=== PATIENT | female | born 1990 | race Caucasian/White ===

== ENCOUNTER → 2016-02-16 | Outpatient (CLI) | payer OTHER ==
[~2016-02-16] MED LIST: CALNTAB; CLON0.1T PO; IBUP-232 PO; SENN1TAB PO; SUBO8MIS SL; Z.0.NO CURRENT MEDS
== END ==
LOC: HPND 10:09
PROVIDERS: ATTEND Obstetrics & Gynecology
DX: O99.322 Drug use complicating pregnancy, second trimester (principal); O99.512 Diseases of the respiratory system complicating pregnancy, second trimester; O09.32 Supervision of pregnancy with insufficient antenatal care, second trimester; Z3A.22 22 weeks gestation of pregnancy
CPT/HCPCS: 76811; 76825; 76827; 93325

== ENCOUNTER 2016-04-23 21:13 | Emergency (ER) | payer MEDICAID ==
[~2016-04-23 21:13] MED LIST changes: -CALNTAB; -CLON0.1T PO; -SENN1TAB PO; -SUBO8MIS SL
--- NOTE | 2016-04-23 21:50 | PD ---
History of Present Illness Date Seen: Apr 23, 2016 History of Present Illness Pt is 38 wks with postcoital bleeding today [the only time she has had bleeding] US in past ruled out previa. Denies pain or SROM, FHR reactive no CTXs exam --spec exam - no blood nl cx no infection , cx /-2/vtx Plan to observe for 1 hr and if no bleeding can D/C home , it was explained to her that sex or vag exams can cause some light bleeding She goes to a different OB group at [facility] and will follow up with them Guillermo Pizarro II, MD Apr 23, 2016 21:50
--- NOTE | 2016-04-23 22:07 | PD ---
HPI Chief Complaint vaginal pink discharge/bleeding Date Seen: Apr 23, 2016 Travel History International Travel<30 Days: No Contact w/Intl Traveler<30Days: No History of Present Illness HPI Ms. Lopes is a 25 yo at 38 5/7 weeks (KIM 05/02/2016) who presents with report of "pink"/"clear" vaginal bleeding which has been persistent since 2-3pm today. Patient describes volume as like a light period. This discharge occurred immediately after intercourse. Patient otherwise denies symptoms. She reports normal movement. She denies any abdominal pain or concern for contractions. Patient does not think she had rupture of membranes. Patient does not report shortness of breath, headaches, fever/chills, nausea/ vomiting, dysuria, or calf pain at this time. Patient reports that she has been taking clonidine 0.1 mg daily at bedtime, Subutex 4 mg daily, and vitamin supplementation during . Patient reports that she smokes approximately 2 cigarettes a day. Per records , patient has history of hepatitis C which has not been treated. Para: 1 : 4 Miscarriage: 2 History Past Medical History Narrative Medical Per Patient None Per records Hepatitis C Tobacco abuse Opiate abuse Anemia (prior Hgb 910) Obstetric History Obstetric History Per patient: Per EMR: 011 Past Surgical History Surgical History: No Previous Surgery Family History Narrative Family History Per records, family history of Down syndrome but otherwise negative Family History: Negative Social History Alcohol Use: No Tobacco Use: Yes (patient reports 2 cigarettes a day) Substance Abuse: Yes (Subutex use; per [facility] records this was not initially prescribed) Allergies-Medications (Allergen,Severity, Reaction): Coded Allergies: No Known Allergies (Verified , 01/09/11) Home Meds Active Scripts Ibuprofen (Motrin)600 Mg [id number] Mg PO TID #45 Prov:Thomas Marrero MD 01/10/11 Reported Medications Miscellaneous (No Current Meds) [facility] [place] 01/09/11 Review of Systems General / Constitutional: No: Fever, Chills Eyes: No: Blurred Vision HENT: No: Headaches Cardiovascular: No: Chest Pain or Discomfort Respiratory: No: Short of Breath Gastrointestinal: No: Nausea, Vomiting Genitourinary: No: Dysuria Skin: No Rash Physical Exam BP 126/86 HR 61 Respirations 18 Temp 98.1F Narrative GENERAL: Well-nourished, well-developed patient. SKIN: Warm and dry. HEAD: Normocephalic and atraumatic. EYES: No scleral icterus. No injection or drainage. ENT: No nasal drainage noted. Mucous membranes pink. Airway patent. NECK: Supple, trachea midline. No JVD. CARDIOVASCULAR: Regular rate and rhythm without murmurs; normal rate RESPIRATORY: Breath sounds equal bilaterally. No accessory muscle use. EXTREMITIES: No cyanosis or edema. NEUROLOGICAL: Awake and alert. Motor and sensory function grossly within normal limits. ABDOMEN/GI: Abdomen soft, non-tender, bowel sounds present, no rebound, no guarding Gravid GENITOURINARY: Vaginal vault: No blood visible on speculum exam Cervix: Dilatation: 3 Effacement: 50% Station: -2 Presentation: V Membranes: Intact Uterine Contractions: None FHT's: Category: 1 Baseline: 130 Reactive: Y Variability: Moderate Decels: None Data Data Vital Signs Reviewed: Yes MDM Medical Record Reviewed: Yes Narrative Course / MDM 25 yo at 38 5/7 weeks (KIM 05/02/2016) Assessment: Strong suspicion for postcoital bleeding from cervical irritation Category 1 rhythm Cervix 3/50%/-2 No evidence of vaginal blood/bleeding on speculum exam No contractions on EFM Plan We'll continue to monitor patient/EFM for 1 hour to confirm reassuring status Interval History: -EFM reassuring x1 hr. Category 1 rhythm. No evidence of contractions. Patient deemed stable for discharge home; patient recommended to follow up with her OB provider within one week for routine care Diagnosis Diagnosis: Primary Impression: PCB (post coital bleeding) Disposition: 01 DISCHARGE HOME Condition: Stable Referrals: HEATHER CASTAÑEDA M.D. 1 week Patient Instructions: General Instructions, at 39 to 40 Weeks (DC) Zack Al MD R2 Apr 23, 2016 22:07
== END 2016-04-23 22:38 | disposition home or self-care (01) ==
LOC: HOBED 21:13
DX: N93.0 Postcoital and contact bleeding (principal); B19.20 Unspecified viral hepatitis C without hepatic coma; F11.10 Opioid abuse, uncomplicated; D64.9 Anemia, unspecified; Z3A.38 38 weeks gestation of pregnancy; Z72.0 Tobacco use
CPT/HCPCS: 99284

== ENCOUNTER 2016-05-01 10:08 | Inpatient (IN) | payer MEDICAID ==
[2016-05-01] VITALS (35 sets, daily range): BP systolic 110–144; BP diastolic 65–97; PULSE 58–121; RESP 18; TEMP 98.3–98.8; O2SAT 100
[~2016-05-01] VITALS: Ht 183 cm; Wt 81.6 kg
[2016-05-01] MEDS ORDERED: LACTATED RINGER'S 1000 ML INJ 1,000 ML IV SCH (10:31)
[2016-05-01] MEDS ORDERED: LACTATED RINGER'S 1000 ML INJ 1,000 ML IV PRN (10:31)
[2016-05-01] MEDS ORDERED: LIDOCAINE HCL 1% 50 ML VIAL I-DERMAL PRN (10:45)
[2016-05-01] MEDS ORDERED: LIDOCAINE HCL 1% 50 ML VIAL INFIL PRN (10:45)
[2016-05-01] MEDS ORDERED: MINERAL OIL 10 ML VIAL TOPICAL PRN (10:45)
[2016-05-01] MEDS ORDERED: SODIUM CHLORID 0.9% 500 ML INJ 500 ML IV PRN (10:45)
[2016-05-01] MEDS ORDERED: OXYTOCIN 30 UNITS-500ML PREMIX 500 ML IV ONE (10:45)
[2016-05-01] MEDS ORDERED: CITRIC ACID-SODIUM CITRATE LIQ 30 ML UDC PO SCH (10:45)
--- NOTE | 2016-05-01 10:48 | PD ---
HPI Chief Complaint Contractions Date Seen: May 01, 2016 Time Seen: 10:35 Travel History International Travel<30 Days: No Contact w/Intl Traveler<30Days: No Known Affected Area: No History of Present Illness HPI 25-year-old 4 para 1 AB 2 at 39-6/7 weeks gestation with contractions. She denies leakage of fluid or bleeding. Para: 1 : 4 Miscarriage: 2 History Past Medical History Narrative Medical On Subutex for history of opiate abuse Obstetric History Obstetric History One prior vaginal delivery 7 lbs. 7 oz. 2 [facility] no records are available for review. The patient reports a negative GBS result Past Surgical History Surgical History: No Previous Surgery Family History Family History: Negative Social History Alcohol Use: No Tobacco Use: No Substance Abuse: Yes (currently on Subutex) Allergies-Medications (Allergen,Severity, Reaction): Coded Allergies: No Known Allergies (Verified , 01/09/11) Home Meds Active Scripts Ibuprofen (Motrin)600 Mg [id number] Mg PO TID #45 Prov:Thomas Marrero MD 01/10/11 Reported Medications Miscellaneous (No Current Meds) [facility] [place] 01/09/11 Physical Exam Narrative GENERAL: Well-nourished, well-developed patient. SKIN: Warm and dry. HEAD: Normocephalic and atraumatic. EYES: No scleral icterus. No injection or drainage. ENT: No nasal drainage noted. Mucous membranes pink. Airway patent. NECK: Supple, trachea midline. No JVD. CARDIOVASCULAR: Regular rate and rhythm without murmurs, gallops, or rubs. RESPIRATORY: Breath sounds equal bilaterally. No accessory muscle use. ABDOMEN/GI: Abdomen soft, non-tender, bowel sounds present, no rebound, no guarding Gravid to [-] weeks size Fundal Height: [-] GENITOURINARY: External Genitalia: intact and normal in appearance BUS glands: [-] Cervix: [-] Dilatation: [-8-9] Effacement: [-] 100 Station: [-+1] Presentation: [-] Membranes: [intact ] Uterine Contractions: [Every 2-3-] FHT's: Category: [-] Baseline: [-] Reactive: [-] Variability: [-] Decels: [-] EXTREMITIES: No cyanosis or edema. BACK: Nontender without obvious deformity. No CVA tenderness. NEUROLOGICAL: Awake and alert. Motor and sensory grossly within normal limits. Five out of 5 muscle strength in all muscle groups. Normal speech. Data Data Orders Ob (2e) Additional Admit Info (05/01/16 10:32) Admit To Inpatient (05/01/16 ) Code Status (05/01/16 10:31) Vital Signs (Adult) .Per protocol (05/01/16 10:31) ^ Heart (05/01/16 10:31) ^ Amnioinfusion (05/01/16 10:31) Urinary Catheter Management .ONCE (05/01/16 10:31) Lactated Ringer's 1000 Ml Inj (Lr 1000 M (05/01/16 10:31) Lactated Ringer's 1000 Ml Inj (Lr 1000 M (05/01/16 10:31) Sodium Chlorid 0.9% 500 Ml Inj (Ns 500 M (05/01/16 10:45) Sodium Chlor 0.9% 1000 Ml Inj (Ns 1000 M (05/01/16 10:51) Lidocaine 1% Inj (50 Ml) (Xylocaine 1% I (05/01/16 10:45) Citric Acid-Sodium Citrate Liq (Bicitra (05/01/16 10:45) Fentanyl Inj (Fentanyl Inj) (05/01/16 10:45) Fentanyl Inj (Fentanyl Inj) (05/01/16 10:45) Complete Blood Count With Diff (05/01/16 10:31) Hold Clot (05/01/16 10:31) Abo/Rh Blood Type (05/01/16 10:31) Resp Oxygen Non Rebreathe Mask (05/01/16 ) ^ Epidural / Intrathecal Infus (05/01/16 10:31) Oxytocin 30 Units-500ml Premix (Pitocin (05/01/16 10:45) Lidocaine 1% Inj (50 Ml) (Xylocaine 1% I (05/01/16 10:45) Light Mineral Oil (Muri-Lube Oil) (05/01/16 10:45) Inpatient Certification (05/01/16 ) Vital Signs (Adult) .ON ADMISSION (05/01/16 10:37) ^ Labor Status (05/01/16 10:37) Drug Screen, Random Urine (05/01/16 10:37) MDM Medical Record Reviewed: Yes Narrative Course / MDM Assessment: Term intrauterine in active labor, current Subutex use Plan: Admit for labor management, expect vaginal delivery Stevo Cross MD May 01, 2016 10:48
[2016-05-01] MEDS ORDERED: SODIUM CHLOR 0.9% 1000 ML INJ 1,000 ML IV PRN (10:51)
--- NOTE | 2016-05-01 10:51 | HHI.HP ---
History & Physical H&P Patient Name: Christina Lopes Unit Number: [id number] Date of : 1990 Patient Status: Admitted Inpatient Attending Doctor: Stevo Cross MD HPI HPI Chief Complaint Contractions Date Seen: May 01, 2016 Time Seen: 10:35 Travel History International Travel<30 Days: No Contact w/Intl Traveler<30Days: No Known Affected Area: No History of Present Illness HPI 25-year-old 4 para 1 AB 2 at 39-6/7 weeks gestation with contractions. She denies leakage of fluid or bleeding. Para: 1 : 4 Miscarriage: 2 History (Limited) History Past Medical History Narrative Medical On Subutex for history of opiate abuse Obstetric History Obstetric History One prior vaginal delivery 7 lbs. 7 oz. 2 prior [facility]riages [facility] but no records are available for review. The patient reports a negative GBS result Past Surgical History Surgical History: No Previous Surgery Family History Family History: Negative Social History Alcohol Use: No Tobacco Use: No Substance Abuse: Yes (currently on Subutex) Allergies-Medications Allergies-Medications (Allergen,Severity, Reaction): Coded Allergies: No Known Allergies (Verified , 01/09/11) Home Meds Active Scripts Ibuprofen (Motrin)600 Mg [id number] Mg PO TID #45 Prov:Thomas Marrero MD 01/10/11 Reported Medications Miscellaneous (No Current Meds) Misc 01/09/11 ROS Review of Systems Physical Exam Physical Exam Narrative GENERAL: Well-nourished, well-developed patient. SKIN: Warm and dry. HEAD: Normocephalic and atraumatic. EYES: No scleral icterus. No injection or drainage. ENT: No nasal drainage noted. Mucous membranes pink. Airway patent. NECK: Supple, trachea midline. No JVD. CARDIOVASCULAR: Regular rate and rhythm without murmurs, gallops, or rubs. RESPIRATORY: Breath sounds equal bilaterally. No accessory muscle use. ABDOMEN/GI: Abdomen soft, non-tender, bowel sounds present, no rebound, no guarding Gravid to [-] weeks size Fundal Height: [-] GENITOURINARY: External Genitalia: intact and normal in appearance BUS glands: [-] Cervix: [-] Dilatation: [-8-9] Effacement: [-] 100 Station: [-+1] Presentation: [-] Membranes: [intact ] Uterine Contractions: [Every 2-3-] FHT's: Category: [-] Baseline: [-] Reactive: [-] Variability: [-] Decels: [-] EXTREMITIES: No cyanosis or edema. BACK: Nontender without obvious deformity. No CVA tenderness. NEUROLOGICAL: Awake and alert. Motor and sensory grossly within normal limits. Five out of 5 muscle strength in all muscle groups. Normal speech. Data Data Data Orders Ob (2e) Additional Admit Info (05/01/16 10:32) Admit To Inpatient (05/01/16 ) Code Status (05/01/16 10:31) Vital Signs (Adult) .Per protocol (05/01/16 10:31) ^ Heart (05/01/16 10:31) ^ Amnioinfusion (05/01/16 10:31) Urinary Catheter Management .ONCE (05/01/16 10:31) Lactated Ringer's 1000 Ml Inj (Lr 1000 M (05/01/16 10:31) Lactated Ringer's 1000 Ml Inj (Lr 1000 M (05/01/16 10:31) Sodium Chlorid 0.9% 500 Ml Inj (Ns 500 M (05/01/16 10:45) Sodium Chlor 0.9% 1000 Ml Inj (Ns 1000 M (05/01/16 10:51) Lidocaine 1% Inj (50 Ml) (Xylocaine 1% I (05/01/16 10:45) Citric Acid-Sodium Citrate Liq (Bicitra (05/01/16 10:45) Fentanyl Inj (Fentanyl Inj) (05/01/16 10:45) Fentanyl Inj (Fentanyl Inj) (05/01/16 10:45) Complete Blood Count With Diff (05/01/16 10:31) Hold Clot (05/01/16 10:31) Abo/Rh Blood Type (05/01/16 10:31) Resp Oxygen Non Rebreathe Mask (05/01/16 ) ^ Epidural / Intrathecal Infus (05/01/16 10:31) Oxytocin 30 Units-500ml Premix (Pitocin (05/01/16 10:45) Lidocaine 1% Inj (50 Ml) (Xylocaine 1% I (05/01/16 10:45) Light Mineral Oil (Muri-Lube Oil) (05/01/16 10:45) Inpatient Certification (05/01/16 ) Vital Signs (Adult) .ON ADMISSION (05/01/16 10:37) ^ Labor Status (05/01/16 10:37) Drug Screen, Random Urine (05/01/16 10:37) MDM MDM Medical Record Reviewed: Yes Narrative Course / MDM Assessment: Term intrauterine in active labor, current Subutex use Plan: Admit for labor management, expect vaginal delivery Stevo Cross MD May 01, 2016 10:48 Stevo Cross MD May 01, 2016 10:50
[2016-05-01] MEDS ORDERED: CALNTAB (11:11)
[2016-05-01] MEDS ORDERED: SUBO8MIS SL (11:12)
[2016-05-01] MEDS ORDERED: CLON0.1T PO (11:12)
[2016-05-01 11:38] LABS: AUTOMATED NEUTROPHIL # 8.1 TH/MM3 (1.8-7.7); BASOPHIL # 0.1 TH/MM3 (0-0.2); BASOPHIL % 0.5 % (0.0-2.0); EOSINOPHIL % 0.4 % (0.0-4.0); HEMATOCRIT 39.5 % (35.0-46.0); HEMO FLAGS DIFF FINAL; LYMPH % 26.5 % (9.0-44.0); LYMPHOCYTE # 3.1 TH/MM3 (1.0-4.8); MEAN CELL VOLUME 88.7 FL (80.0-100.0); MEAN CORPUSCULAR HEMOGLOBIN 30.6 PG (27.0-34.0); MEAN CORPUSCULAR HGB CONC 34.5 % (32.0-36.0); MONO % 4.3 % (0.0-8.0); NEUT % 68.3 % (16.0-70.0); PLATELET COUNT 236 TH/MM3 (150-450); RED BLOOD COUNT 4.45 MIL/MM3 (4.00-5.30); RED CELL DISTRIBUTION WIDTH 12.9 % (11.6-17.2); WHITE BLOOD COUNT 11.8 TH/MM3 (4.0-11.0)
[2016-05-01 11:46] LABS: AMPHETAMINE, URINE NEG (NEG); BARBITURATES, URINE NEG (NEG); COCAINE, URINE NEG (NEG)
--- NOTE | 2016-05-01 11:47 | PD.LABORPN ---
Subjective Subjective No new complaints Objective Vital Signs records were obtained from [facility] which indicates the patient is positive for group B strep Hepatitis C RNA was positive at 4.24 on March 02 Rh- Objective Pelvic Exam: Cervix: [-] Dilatation: [-] Effacement: [-] Station: [-] Presentation: [-] Membranes: [intact or ruptured] Uterine Contractions: [-] FHT's: Category: [-1] Baseline: [-] Reactive: [-] Variability: [-] Decels: [-] Assessment/Plan Assessment and Plan Assessment: at 39+ weeks in active labor, who available medical records indicate positive GBS status, Rh- status, hepatitis C viral load significant in February Very difficult IV access Plan: Continue attempts at IV access, GBS prophylaxis Stevo Cross MD May 01, 2016 11:47
[2016-05-01] MEDS ORDERED: PENICILLIN G POTASSIUM INJ 5,000,000 UNITS in SODIUM CHLORIDE 0.9% INJ 100 ML IV ONE (12:00)
[2016-05-01] MEDS ORDERED: fentaNYL 2MCG-BUPIV 0.125% INJ 100 ML ONE (12:38)
[2016-05-01] MEDS ORDERED: ePHEDrine/NS 25 MG/5 ML SYR ONE (12:39)
--- NOTE | 2016-05-01 12:51 | PD.LABORPN ---
Subjective Subjective Patient feels the urge to push. Objective Vital Signs Cervix is anterior lip Objective Pelvic Exam: Cervix: [-] Dilatation: [9+-] Effacement: [-] Station: [0-] Presentation: [-] Membranes: [intact or ruptured] Uterine Contractions: [-] FHT's: Category: [-1] Baseline: [-] Reactive: [-] Variability: [-] Decels: [-] Assessment/Plan Assessment and Plan Assessment active labor, IV access now established Plan: Penicillin prophylaxis Stevo Cross MD May 01, 2016 12:51
--- NOTE | 2016-05-01 14:19 | PD.OB.DELI ---
Anesthesia: Epidural Episiotomy: None Vaginal Delivery: Normal Presentation: Occiput anterior Nuchal Cord: None Delayed cord clamping (45 sec): Yes Shoulder Dystocia: Other (no delay for shoulders which were delivered by maternal effort) : Male One Minute : 7 Five Minute : 9 Weight: 8lb 1oz Care: Spontaneous crying, Responded to stimulation Placenta: Spontaneous delivery Laceration: No lacerations (EBL 150cc) Stevo Cross MD May 01, 2016 14:19
[2016-05-01] MEDS ORDERED: ONDANSETRON ODT 4 MG TAB PO PRN (14:30)
[2016-05-01] MEDS ORDERED: SODIUM CHLORIDE 0.9% FLUSH 5 ML FLUSH IV PRN (14:30)
[2016-05-01] MEDS ORDERED: BENZOCAINE 20% TOPICAL SPRAY 60 ML CAN TOPICAL PRN (14:30)
[2016-05-01] MEDS ORDERED: ZOLPIDEM TARTRATE 5 MG TAB PO PRN (14:30)
[2016-05-01] MEDS ORDERED: ACETAMINOPHEN 325 MG TAB PO PRN (14:30)
[2016-05-01] MEDS ORDERED: WITCH HAZEL 50%/GLYCERIN 12.5% 40 PAD JAR TOPICAL PRN (14:30)
[2016-05-01] MEDS ORDERED: ALUMINUM/MAGNESIUM/SIMETH 30 ML CUP PO PRN (14:30)
[2016-05-01] MEDS ORDERED: DOCUSATE SODIUM 50 MG/SENNA 8.6 MG TAB PO PRN (14:30)
[2016-05-01] MEDS ORDERED: DIPHTH/TETANUS/ACEL PERTUSSIS (BOOSTER) 0.5 ML VIAL/PFS IM ONE (16:00)
[2016-05-01] MEDS ORDERED: MEASLES, MUMPS, RUBELLA VACCINE 0.5 ML VIAL SQ ONE (16:00)
[2016-05-01] MEDS ORDERED: PENICILLIN G POTASSIUM INJ 2,500,000 UNITS in SODIUM CHLORIDE 0.9% INJ 100 ML IV SCH (16:00)
[2016-05-01] MEDS: IBUPROFEN 600 MG TAB PO PRN ×2 (16:06→23:06)
[2016-05-01] MEDS ORDERED: METHYLERGONOVINE MALEATE 0.2 MG/ML VIAL ONE (18:19)
[2016-05-01] MEDS ORDERED: METHYLERGONOVINE MALEATE 0.2 MG/ML VIAL IM STA (18:33)
[2016-05-01] MEDS ORDERED: OXYTOCIN 30 UNITS-500ML PREMIX 500 ML IV SCH (18:45)
[2016-05-01] MEDS: oxyCODONE/ACETAMINOPHEN 5 MG/325 MG TAB PO PRN ×2 (19:03→23:06)
[2016-05-01] MEDS ORDERED: SODIUM CHLORIDE 0.9% FLUSH 5 ML FLUSH IV SCH (21:00)
[2016-05-02] MEDS: METHYLERGONOVINE MALEATE 0.2 MG TAB PO SCH ×3 (00:28→13:15)
[2016-05-02] MEDS: oxyCODONE/ACETAMINOPHEN 5 MG/325 MG TAB PO PRN ×3 (05:29→20:41)
[2016-05-02] MEDS: IBUPROFEN 600 MG TAB PO PRN ×3 (05:30→20:41)
--- NOTE | 2016-05-02 07:04 | HHI.OB ---
Subjective Post Day: 1 Remarks day # 1. AFVSS overnight. Pain controlled, currently on Subutex. Decreased lochia. Denies dysuria. No breast tenderness. She is feeding the baby via breast. Appetite good. No nausea or vomiting. Positive flatus. Negative bowel movement. Ambulating well. Denies calf pain, shortness of breath, or cough. Otherwise, she is doing well this morning and has no other complaints. (Ayo Cochran MD R2) Remarks Patient seen and evaluated with resident under direct supervision, agree with assessment and plan. (Stevo Cross MD) Objective Vitals/I&O Vital Signs Date Time Temp Pulse Resp B/P Pulse Ox O2 Delivery O2 Flow Rate FiO2 05/01/16 20:05 18 05/01/16 20:00 65 138/73 05/01/16 19:45 58 121/66 05/01/16 19:42 18 05/01/16 19:42 98.8 05/01/16 19:35 59 123/65 05/01/16 19:17 18 05/01/16 19:15 59 123/74 05/01/16 19:04 18 05/01/16 19:00 62 123/70 05/01/16 18:46 65 110/86 05/01/16 18:44 63 129/69 05/01/16 18:30 64 128/65 05/01/16 18:29 66 126/68 05/01/16 16:00 60 122/74 05/01/16 15:30 62 127/72 05/01/16 15:00 62 135/83 05/01/16 14:45 60 129/78 05/01/16 14:35 98.3 05/01/16 14:31 121 134/80 05/01/16 14:15 68 128/70 05/01/16 14:01 67 136/76 05/01/16 13:46 97 132/87 05/01/16 13:45 80 05/01/16 13:40 70 05/01/16 13:35 64 05/01/16 13:30 67 128/97 05/01/16 13:30 18 05/01/16 13:30 64 05/01/16 13:25 63 05/01/16 13:25 84 135/79 05/01/16 13:20 87 136/88 05/01/16 13:20 74 05/01/16 13:15 71 05/01/16 13:15 83 144/77 05/01/16 13:10 86 05/01/16 13:10 97 142/82 05/01/16 13:05 86 05/01/16 13:05 79 133/80 100 05/01/16 13:00 78 129/73 100 05/01/16 13:00 85 05/01/16 12:55 87 05/01/16 12:55 87 136/83 100 05/01/16 12:50 70 143/82 100 05/01/16 12:50 69 05/01/16 12:49 61 144/85 05/01/16 12:45 18 Objective Remarks GENERAL: Well-nourished, well-developed patient. CARDIOVASCULAR: Regular rate and rhythm without murmurs, gallops, or rubs. RESPIRATORY: Breath sounds equal bilaterally. No accessory muscle use. ABDOMEN/GI: Abdomen soft, non-tender. Fundus: Firm, non-tender at umbilicus. GENITOURINARY: Light to moderate bleeding. EXTREMITIES: No cyanosis or edema, non-tender, without signs of DVT. Medications and IVs Current Medications Medications (Trade) Dose Ordered Sig/Yeimy Route Start Time Stop Time Status Last Admin Lactated Ringer's 1,000 ml @ 125 mls/hr Q8H IV 05/01/16 10:31 05/01/16 13:16 Lactated Ringer's 1,000 ml @ 3,000 mls/hr Q20M PRN IV 05/01/16 10:31 05/01/16 12:33 Sodium Chloride 500 ml @ 1,000 mls/hr ONCE PRN IV 05/01/16 10:45 (NS 1000 ml Inj) 1,000 ml @ 100 mls/hr Q10H PRN IV 05/01/16 10:51 (fentaNYL INJ) 50 mcg Q1H PRN IV PUSH 05/01/16 10:45 (fentaNYL INJ) 100 mcg Q1H PRN IV PUSH 05/01/16 10:45 (Muri-Lube Oil) 10 ml UNSCH PRN TOPICAL 05/01/16 10:45 (NS Flush) 2 ml BID IV 05/01/16 21:00 (NS Flush) 2 ml UNSCH PRN IV 05/01/16 14:30 05/01/16 16:39 (Tylenol) 650 mg Q4H PRN PO 05/01/16 14:30 (Motrin) 600 mg Q6H PRN PO 05/01/16 14:30 05/02/16 05:30 (Percocet 5-325 Mg) 2 tab Q4H PRN PO 05/01/16 14:30 05/02/16 05:29 (Americaine 20% Top Spr) 1 spray Q4H PRN TOPICAL 05/01/16 14:30 05/01/16 20:56 (Tucks Pads) 1 applic QID PRN TOPICAL 05/01/16 14:30 05/01/16 20:56 (Екатерина-Colace) 2 tab Q12H PRN PO 05/01/16 14:30 (Ambien) 5 mg HS PRN PO 05/01/16 14:30 (Mag-Al Plus Susp Liq) 15 ml Q8H PRN PO 05/01/16 14:30 (Zofran Odt) 4 mg Q6H PRN PO 05/01/16 14:30 (Methergine) 0.2 mg Q6HR PO 05/02/16 00:00 05/02/16 18:01 05/02/16 05:30 (Ayo Cochran MD R2) Assessment/Plan Problem List: (1) Vaginal delivery (2) care following vaginal delivery Assessment and Plan 25 y/o female who is PPD# 1 s/p . -Continue routine care. -Percocet and Motrin PRN pain. -Encouraged OOB. Advised pelvic rest for 6 wks. -Will need a f/u appt. within 6 wks. -Re: ctrl, she would like IUD. -D/c anticipated for tomorrow. wdw OB attending Discharge Planning Discharge anticipated for tomorrow (Ayo Cochran MD R2) Ayo Cochran MD R2 May 02, 2016 07:04 Stevo Cross MD May 02, 2016 08:22
[2016-05-02 17:28] LABS: AUTOMATED NEUTROPHIL # 4.8 TH/MM3 (1.8-7.7); BASOPHIL % 0.4 % (0.0-2.0); EOSINOPHIL % 0.4 % (0.0-4.0); HEMATOCRIT 29.1 % (35.0-46.0); HEMO FLAGS DIFF FINAL; LYMPH % 32.6 % (9.0-44.0); LYMPHOCYTE # 2.5 TH/MM3 (1.0-4.8); MEAN CELL VOLUME 91.8 FL (80.0-100.0); MEAN CORPUSCULAR HGB CONC 33.7 % (32.0-36.0); MONO % 4.9 % (0.0-8.0); NEUT % 61.7 % (16.0-70.0); PLATELET COUNT 187 TH/MM3 (150-450); RED BLOOD COUNT 3.16 MIL/MM3 (4.00-5.30); WHITE BLOOD COUNT 7.8 TH/MM3 (4.0-11.0)
[2016-05-02] MEDS ORDERED: METHYLERGONOVINE MALEATE 0.2 MG TAB PO ONE (18:45)
[2016-05-03] MEDS: IBUPROFEN 600 MG TAB PO PRN (03:48)
[2016-05-03] MEDS: oxyCODONE/ACETAMINOPHEN 5 MG/325 MG TAB PO PRN (03:49)
--- NOTE | 2016-05-03 07:14 | HHI.OB ---
Subjective Post Day: 2 Remarks day # 2. AFVSS overnight. Pain controlled. Decreased lochia. Denies dysuria. No breast tenderness. She is feeding the baby via breast/ bottle. Appetite good. No nausea or vomiting. Positive flatus. Negative bowel movement. Ambulating well. Denies calf pain, shortness of breath, or cough. Otherwise, she is doing well this morning and has no other complaints. Objective Objective Remarks GENERAL: Well-nourished, well-developed patient. CARDIOVASCULAR: Regular rate and rhythm without murmurs, gallops, or rubs. RESPIRATORY: Breath sounds equal bilaterally. No accessory muscle use. ABDOMEN/GI: Abdomen soft, non-tender. Fundus: Firm, non-tender at umbilicus. GENITOURINARY: Light to moderate bleeding. EXTREMITIES: No cyanosis or edema, non-tender, without signs of DVT. Medications and IVs Current Medications Medications (Trade) Dose Ordered Sig/Yeimy Route Start Time Stop Time Status Last Admin Lactated Ringer's 1,000 ml @ 125 mls/hr Q8H IV 05/01/16 10:31 05/01/16 13:16 Lactated Ringer's 1,000 ml @ 3,000 mls/hr Q20M PRN IV 05/01/16 10:31 05/01/16 12:33 Sodium Chloride 500 ml @ 1,000 mls/hr ONCE PRN IV 05/01/16 10:45 (NS 1000 ml Inj) 1,000 ml @ 100 mls/hr Q10H PRN IV 05/01/16 10:51 (fentaNYL INJ) 50 mcg Q1H PRN IV PUSH 05/01/16 10:45 (fentaNYL INJ) 100 mcg Q1H PRN IV PUSH 05/01/16 10:45 (Muri-Lube Oil) 10 ml UNSCH PRN TOPICAL 05/01/16 10:45 (NS Flush) 2 ml BID IV 05/01/16 21:00 (NS Flush) 2 ml UNSCH PRN IV 05/01/16 14:30 05/01/16 16:39 (Tylenol) 650 mg Q4H PRN PO 05/01/16 14:30 (Motrin) 600 mg Q6H PRN PO 05/01/16 14:30 05/03/16 03:48 (Percocet 5-325 Mg) 2 tab Q4H PRN PO 05/01/16 14:30 05/03/16 03:49 (Americaine 20% Top Spr) 1 spray Q4H PRN TOPICAL 05/01/16 14:30 05/01/16 20:56 (Tucks Pads) 1 applic QID PRN TOPICAL 05/01/16 14:30 05/01/16 20:56 (Екатерина-Colace) 2 tab Q12H PRN PO 05/01/16 14:30 05/02/16 13:24 (Ambien) 5 mg HS PRN PO 05/01/16 14:30 (Mag-Al Plus Susp Liq) 15 ml Q8H PRN PO 05/01/16 14:30 (Zofran Odt) 4 mg Q6H PRN PO 05/01/16 14:30 Assessment/Plan Problem List: (1) Vaginal delivery (2) care following vaginal delivery Assessment and Plan 25 y/o female who is PPD# 2 s/p . -Continue routine care. -Percocet and Motrin PRN pain. -Encouraged OOB. Advised pelvic rest for 6 wks. -Will need a f/u appt. within 6 wks. -Re: ctrl, she would like IUD. -D/c anticipated for today. wdw OB attending Discharge Planning Discharge anticipated for today Ayo Cochran MD R2 May 03, 2016 07:14
[2016-05-03] MEDS ORDERED: SENN1TAB PO (07:19)
[2016-05-03] MEDS ORDERED: IBUP-232 PO (07:19)
--- NOTE | 2016-05-03 07:20 | HHI.DCPOC ---
Discharge Care Plan Diagnosis: (1) Vaginal delivery (2) care following vaginal delivery Report Symptoms to Your Doctor -Temperate above 100.5 degrees -Redness, of incision or excessive or foul smelling drainage -Unusual pain or calf pain -Increased vaginal bleeding -Painful or difficulty urinating -Feelings of extreme sadness or anxiety after 2 weeks Goals to Promote Your Health * To prevent worsening of your condition and complications * To maintain your health at the optimal level Follow-up with OB in 6 week Pelvic rest 6 weeks Directions to Meet Your Goals Take your medications as prescribed Follow your dietary instruction Follow activity as directed Ensure plenty of rest for recovery Drink fluids for hydration Keep your appointments as scheduled Take your immunizations and boosters as scheduled If your symptoms worsen call your PCP, if no PCP go to Urgent Care Center or Emergency Room Smoking is Dangerous to Your Health. Avoid second hand smoke Call the 24-hour crisis hotline for domestic abuse at Ayo Cochran MD R2 May 03, 2016 07:20
[2016-05-03 09:06] VITALS: BP 128/79; PULSE 88; RESP 20
[2016-05-03 09:07] VITALS: TEMP 97.8
[2016-05-03 09:43] LABS: AUTOMATED NEUTROPHIL # 3.6 TH/MM3 (1.8-7.7); BASOPHIL # 0.1 TH/MM3 (0-0.2); EOSINOPHIL # 0.2 TH/MM3 (0-0.4); EOSINOPHIL % 2.2 % (0.0-4.0); HEMATOCRIT 33.7 % (35.0-46.0); HEMO FLAGS DIFF FINAL; LYMPHOCYTE # 3.7 TH/MM3 (1.0-4.8); MEAN CELL VOLUME 89.5 FL (80.0-100.0); MEAN CORPUSCULAR HEMOGLOBIN 30.9 PG (27.0-34.0); MEAN CORPUSCULAR HGB CONC 34.5 % (32.0-36.0); MONO % 4.5 % (0.0-8.0); NEUT % 45.3 % (16.0-70.0); PLATELET COUNT 213 TH/MM3 (150-450); RED BLOOD COUNT 3.76 MIL/MM3 (4.00-5.30); WHITE BLOOD COUNT 7.9 TH/MM3 (4.0-11.0)
== END 2016-05-03 14:00 | disposition home or self-care (01) | DRG 774 ==
LOC: HOBED 10:08 → H2EB 10:33 → H1EA 20:31
PROVIDERS: ADMIT Obstetrics & Gynecology; ATTEND Obstetrics & Gynecology
PROC: 10E0XZZ Delivery of Products of Conception, External Approach (ICD-10-PCS; principal; 2016-05-01)
PROC: 10907ZC Drainage of Amniotic Fluid, Therapeutic from Products of Conception, Via Natural or Artificial Opening (ICD-10-PCS; 2016-05-01)
DX: O99.334 Smoking (tobacco) complicating childbirth (principal); O98.413 Viral hepatitis complicating pregnancy, third trimester; O99.824 Streptococcus B carrier state complicating childbirth; O66.0 Obstructed labor due to shoulder dystocia; B19.20 Unspecified viral hepatitis C without hepatic coma; Z3A.39 39 weeks gestation of pregnancy; Z37.0 Single live birth
CPT/HCPCS: 76937; 80307; 85025; 85461; 86850; 86900; 86901; 90384; 90715; 99285; J2210; J2540; J2590; J2790; J7120